=== PATIENT | female | born 1975 | race Caucasian/White ===

== ENCOUNTER 2020-02-23 18:15 | Emergency (ER) | payer OTHER, SELFPAY ==
--- NOTE | ~2020-02-23 | CT_ITS ---
EXAMINATION: CT abdomen pelvis w con DATE: 02/23/2020 20:13 INDICATION: Right-sided abdominal pain TECHNIQUE: Computed tomography (CT) of the abdomen and pelvis was performed with 100 mL Omnipaque-350 intravenous contrast. Automated exposure control and iterative reconstruction technique were employe d. The dose-length product was 849.66 mGy-cm. COMPARISON: None FINDINGS: 6 mm left lower lobe pulmonary nodule. Heart size is normal. No pericardial or pleural effusion. 3.6 cm lobular hepatic cyst with likely indiscernible thin internal septations. Gallbladder, spleen, panc reas, bilateral adrenal glands and kidneys are normal. Normal appendix. No abnormal bowel wall thicke ofelia or obstruction. There is a tortuous collateral vein extending from a branch of the superior mese nteric vein on the anterior right pararenal space to the inferior vena cava which is indeterminate si gnificance. No other vascular abnormality with patent portal vein. Partially decompressed bladder is normal. The uterus is not identified and has likely been surgically resected. A couple bilateral adne xal cysts, each measuring 1.8 cm in maximal diameter. No free intraperitoneal gas or fluid. No pathol ogically enlarged abdominal or pelvic lymphadenopathy. Very small fat-containing umbilical hernia. No pathologically enlarged abdominal or pelvic lymphadenopathy. Mild lumbar levocurvature with mild spo ndylosis. Chronic appearing mild anterior wedging at T12, L1 and L3. IMPRESSION: 1. No acute intra-abdominal/pelvic process. 2. Indeterminate 6 mm left lower lobe pulmonary nodule. Although most likely benign would recommend f ollow-up low-dose noncontrast chest CT at 6-12 months. 3. Tortuous collateral vessel extending from the superior mesenteric vein to the inferior vena cava w hich is of indeterminate significance. Reviewed, dictated and finalized at location . [employer] IMPRESSION: 1. No acute intra-abdominal/pelvic process. 2. Indeterminate 6 mm left lower lobe pulmonary nodule. Although most likely be nign would recommend follow-up low-dose noncontrast chest CT at 6-12 months. 3. Tortuous collateral vessel extending from the superior mesenteric vein to th e inferior vena cava which is of indeterminate significance.
[2020-02-23 18:20] VITALS: BP 135/61; PULSE 91; RESP 20; TEMP 36.4; O2SAT 99
[2020-02-23 18:47] LABS: Basophils Absolute Auto 0.1 K/mm3 (0.0-0.1); Basophils Percent Auto 0.7 % (0.2-1.2); Eosinophils Absolute Auto 0.1 K/mm3 (0-0.3); Eosinophils Percent Auto 1.6 % (0-4.4); Hematocrit 37.2 % (37.0-47.0); Hemoglobin 12.3 g/dL (12.0-15.0); Immature Granulocyte Absolute 0.02 K/mm3 (0.00-0.031); Immature Granulocyte Percent A 0.2 % (0-0.5); Lymphocytes Percent Auto 22.1 % (18.3-44.2); Mean Corpuscular HGB Conc 33.1 g/dl (32-36); Mean Corpuscular Hemoglobin 29.9 pg (26-34); Mean Corpuscular Volume 90.3 fl (80-100); Mean Platelet Volume 11.7 fl (7.4-10.4); Monocytes Absolute Auto 0.7 K/mm3 (0.1-0.6); Monocytes Percent Auto 7.4 % (2.6-8.5); Neutrophils Absolute Auto 6.1 K/mm3 (1.3-6.7); Platelet Count Result 218 k/mm3 (150-375); Red Blood Count 4.12 M/mm3 (4.2-5.4); Red Cell Distribution Width 12.1 % (11.5-14.5)
[2020-02-23 18:50] VITALS: BP 121/82; PULSE 90; RESP 19; O2SAT 99
[2020-02-23] MEDS: MORPHINE SULFATE (*CRX) 4 MG/ML INJ IV PUSH (18:50)
[2020-02-23] MEDS: ONDANSETRON INJ 4 MG/2 ML VIAL IV PUSH (18:50)
[2020-02-23 19:00] LABS: Alanine Aminotransferase 17 U/L (4-35); Albumin Level 4.2 g/dL (3.5-5.1); Alkaline Phosphatase 55 U/L (38-126); Anion Gap 7 mmol/L (8-16); Aspartate Amino Transferase 27 U/L (14-36); Bilirubin,Total 0.3 mg/dL (0.2-1.3); Blood Urea Nitrogen 23 mg/dL (7-17); Calcium 8.8 mg/dL (8.4-10.2); Carbon Dioxide 27 mmol/L (22-30); Chloride 103 mmol/L (98-107); Estimated CRCL calculation 67 ml/min; Estimated Glomerular Filt Rate > 60; Glucose 96 mg/dL (65-105); Lipase 77 U/L (23-300); Potassium 4.1 mmol/L (3.4-5.0); Sodium 137 mmol/L (137-145)
[2020-02-23 19:06] LABS: Add Urine Microscopic? YES; Appearance Urine Clear (Clear); Bilirubin Urine Negative (Negative); Blood Urine Negative (Negative); Color Urine Yellow (Yellow); Glucose Urine UA Negative (Negative); Ketones Urine Negative (Negative); Leukocyte Esterase Ur Negative LEU/UL (Negative); Mucus Urine Rare /lpf; Nitrate Urine Negative (Negative); Protein Urine 1+ mg/dL (Negative); RBC Urine 0-2 /hpf (0-2); Squamous Epithelial Cell Urine Many /hpf (Few); Urobilinogen Urine Negative mg/dL (<2.0); WBC Urine 0-3 /hpf
--- NOTE | 2020-02-23 19:11 | ED.ABDPAIN ---
HPI - Abdominal Pain General Chief Complaint: Abdominal Pain Stated Complaint: gall bladder pain Time Seen by Provider: 02/23/20 18:33 History of Present Illness HPI narrative: Patient is a 44-year-old female who presents ER with upper abdominal pain. Ongoing over the last 48 hours. Persistent and right upper quadrant/epigastrium radiating to her right shoulder. Occasional discomfort right lower quadrant. Worse with eating and drinking. No nausea/vomiting. Reports fever of 100.5 ?F that occurred this afternoon. Patient no formal diagnosis of cholelithiasis but feels her gallbladder may be involved. No alleviating factors. Related Data Home Medications Medication Instructions Recorded Confirmed L norgest/E estradiol-E estrad 1 tablet PO DAILY 10/16/19 0.15 mg-30 mcg (84)/10 mcg(7) tabs,3mos montelukast 10 mg tablet 10 mg PO DAILY 10/16/19 calcium carbonate 200 mg calcium 200 mg PO BID 10/17/19 (500 mg) chewable tablet cholecalciferol (vitamin D3) 1,250 1,250 mcg PO WEEKLY 10/17/19 mcg (50,000 unit) tablet citalopram 20 mg tablet 20 mg PO DAILY 10/17/19 duloxetine 20 mg capsule,delayed 20 mg PO BID 10/17/19 release glucosamine HCl 500 mg tablet 500 mg PO BID 10/17/19 lorazepam 0.5 mg tablet 0.5 mg PO DAILY PRN 10/17/19 Allergies Allergy/AdvReac Type Severity Reaction Status Date / Time tramadol Allergy Intermediate unknown Verified 02/23/20 18:54 hydrocodone AdvReac Unknown VOMITING Verified 02/23/20 18:54 Review of Systems Review of Systems: All systems reviewed & are unremarkable except as noted in HPI and below Constitutional: Constitutional: Denies chills, Reports fever(s) and Denies weakness ENT: Denies nasal congestion and Denies sore throat Cardiovascular: Cardiovascular: Denies chest pain and Denies radiating jaw, neck or arm pain Respiratory: Respiratory: Denies cough and Denies dyspnea Gastrointestinal: Gastrointestinal: Reports abdominal pain, Denies diarrhea, Denies nausea and Denies vomiting Genitourinary: Genitourinary: Denies hematuria, Reports nocturia and Denies dysuria [facility] Past Medical History Medical History (Updated 02/23/20 @ 21:35 by Moustapha Polanco MD) Encounter for tubal ligation Surgical History Surgical History Delivery by section H/O rhinoplasty History of wisdom tooth extraction Family History Family History (Updated 07/20/17 @ 14:02 by DOCTOR UNKNOWN) Father Family history of mental disorder Depression Diabetes mellitus Family history of blood dyscrasia Hypertension Cerebrovascular accident Grandparent Depression Family history of lung cancer Family history of heart disease in male family member before age 55 Diabetes mellitus Mother Family history of diabetes mellitus in first degree relative Diabetes mellitus Hypertension Social History Social History Smoking status: Former smoker Smoking end date: 04/05/96 Alcohol intake: current Substance use type: marijuana Exam Narrative: Exam Narrative: GENERAL: Well-appearing, well-nourished, and in no acute distress. HEAD: Normocephalic, atraumatic. CHEST: Clear to auscultation. No respiratory distress. HEART: Regular rate and rhythm. Normal peripheral pulses. ABDOMEN: Soft, mild tenderness right upper/lower quadrants without guarding, nondistended, normal active bowel sounds. EXTREMITIES: Normal range of motion. No edema. SKIN: Warm, dry, no rash. NEURO: Alert and oriented x3. PSYCH: Normal mood and affect. Course Course Emergency Course: Discussed lab results and imaging results with patient. Specifically discussed lung nodule and need for follow-up CT scan. Discharge home. Will start on Protonix as well as antiemetics. [place] diet as well as low-fat diet recommended. Needs follow-up with PCP for further evaluation. Vital Signs Vi
[2020-02-23 19:13] LABS: Specific Grav Ur 1.033 (1.001-1.035)
[2020-02-23 19:29] VITALS: BP 119/75; PULSE 89; RESP 19; O2SAT 99
[2020-02-23 22:01] VITALS: BP 124/86; PULSE 87; RESP 17; O2SAT 97
== END 2020-02-23 22:03 | disposition home or self-care (01) ==
PROVIDERS: Emergency Provider Emergency Medicine
DX: R10.11 Right upper quadrant pain (principal); R91.1 Solitary pulmonary nodule; Z87.891 Personal history of nicotine dependence
CPT/HCPCS: 36415; 74177; 80053; 81001; 83690; 85025; 96374; 96375; 99284; J2270; J2405; Q9967

== ENCOUNTER 2020-03-11 07:51 | Outpatient (CLI) | payer OTHER, SELFPAY ==
--- NOTE | ~2020-03-11 | US_ITS ---
EXAMINATION: US right upper quadrant DATE: 03/11/2020 08:19 INDICATION: Epigastric abdominal pain. TECHNIQUE: Multiple grayscale and Doppler ultrasound images of the abdomen were obtained. COMPARISON: CT abdomen and pelvis 02/23/2020 FINDINGS: Abdominal aorta is normal in caliber. The visualized portions of the head and body of the p ancreas are normal. There is a 3.9 cm cyst in the liver. No liver surface nodularity. There is normal flow in main portal vein. The gallbladder is normal in size. No gallstones or gallbladder wall thick ening. There is no sonographic Kern sign. The common duct is normal and measures 4 mm. Right kidney is normal. IMPRESSION: 1. No etiology for the patient's symptoms. Reviewed, dictated and finalized at location B. [employer]ER
== END 2020-03-11 07:52 ==
PROVIDERS: PCP Internal Medicine; Visit Provider Internal Medicine
DX: R10.9 Unspecified abdominal pain (principal); K76.89 Other specified diseases of liver
CPT/HCPCS: 76705

== ENCOUNTER 2020-03-15 02:22 | Outpatient (CLI) | payer OTHER, SELFPAY ==
[2020-03-15 18:46] LABS: SARS-CoV-2 RNA PCR Negative
== END 2020-03-15 02:23 | disposition home or self-care (01) ==
LOC: ANHCOVIDDT 02:22
PROVIDERS: PCP Internal Medicine; Visit Provider Internal Medicine Gastroenterology
DX: Z01.812 Encounter for preprocedural laboratory examination (principal); Z20.828 Contact with and (suspected) exposure to other viral communicable diseases
CPT/HCPCS: 87635; C9803; U0003

== ENCOUNTER 2020-03-18 01:40 | Day surgery (SDC) | payer OTHER, SELFPAY ==
[2020-03-08 15:02] VITALS: BMI 30.4
[2020-03-18 09:39] VITALS: BP 149/78; PULSE 80; RESP 16; TEMP 37; O2SAT 97
[2020-03-18] MEDS: LACTATED RINGERS 1,000 ML 150 ML IV CONT (09:41)
--- NOTE | 2020-03-18 09:59 | WPDGICN ---
Assessment and Plan Assessment and plan (1) Abdominal pain: Code(s): R10.9 - Unspecified abdominal pain Status: Acute Assessment and Plan: Patient reports poorly localized abdominal pain. After recent visit to the ER with upper abdominal pain an EGD has been requested will be performed. Further recommendations will be given after endoscopy. Last endoscopy 3 years ago was unremarkable. (2) Constipation: Code(s): K59.00 - Constipation, unspecified Status: Acute Assessment and Plan: Patient has had a change in bowel habits with increasing constipation. Currently on a low dose of Linzess. Plan to increase dose of Linzess to 290 micro g p.o. daily. High-fiber diet is advised. If this fails to relieve her symptoms a colonoscopy would be indicated. GI Consult Note Consult date/time: 03/18/20 09:59 HPI: Gisele Escobar is a 44 year old female Seen in evaluation at the request of Dr. Walters. patient presents for outpatient EGD. Patient has had significant abdominal pain over last several weeks. He went to the emergency room thinking she had gallbladder discomfort in EGD is requested. Patient has various complaints include constipation and dizziness. Over the 2 last 2 weeks has been on a low-dose of Linzess with only modest response to therapy. She has a history of an EGD in 2017 was unremarkable. It was felt that she likely had irritable bowel syndrome. Patient states concern over possible colon disease as well as gallbladder and upper abdominal disease. Her family history is noncontributory. Review of Systems Review of Systems: All systems reviewed & are unremarkable except as noted in HPI and below PMFSH Past Medical History Medical History (Updated 03/18/20 @ 10:[address] MD) Encounter for tubal ligation Surgical History Surgical History Delivery by section H/O rhinoplasty History of wisdom tooth extraction Family History Family History (Updated 07/20/17 @ 14:02 by DOCTOR UNKNOWN) Father Family history of mental disorder Depression Diabetes mellitus Family history of blood dyscrasia Hypertension Cerebrovascular accident Grandparent Depression Family history of lung cancer Family history of heart disease in male family member before age 55 Diabetes mellitus Mother Family history of diabetes mellitus in first degree relative Diabetes mellitus Hypertension Social History Social History Smoking status: Former smoker Smoking end date: 04/05/96 Alcohol intake: current Drinks per week: 2 Substance use: never Substance use type: does not use Spiritual care concerns: No Meds Home Medications and Allergies Home Medications Medication Instructions Recorded Confirmed Type calcium carbonate 200 mg calcium 200 mg PO BID PRN 10/17/19 03/08/20 History (500 mg) chewable tablet citalopram 20 mg tablet 20 mg PO DAILY 10/17/19 03/08/20 History duloxetine 20 mg capsule,delayed 20 mg PO BID 10/17/19 03/08/20 History release ondansetron 4 mg PO Q6H PRN #10 tablet 02/23/20 03/08/20 Rx pantoprazole 40 mg PO BID #28 tablet 02/23/20 03/08/20 Rx fenofibrate nanocrystallized 48 mg PO DAILY 03/08/20 03/08/20 History linaclotide [Linzess] 72 mcg PO DAILY 03/08/20 03/08/20 History inafouyxkges-tbog-qxtqr acid 1 tablet PO DAILY 03/08/20 03/08/20 History [Centrum Women] trazodone 100 mg PO HS PRN 03/08/20 03/08/20 History Allergies Allergy/AdvReac Type Severity Reaction Status Date / Time No Known Allergies Allergy Verified 03/18/20 09:38 Vital Signs Vital Signs - 24 hr 03/18/20 09:39 Temperature 98.6 F Pulse Rate 80 Respiratory Rate 16 Blood Pressure 149/78 H Pulse Oximetry 97 Exam Narrative: Exam Narrative: Physical exam reveals patient to be alert. Vital signs stable. LUKE
--- NOTE | 2020-03-18 10:28 | WPDANESEPPF ---
Anes - Initial Pre Proc Eval Procedure: Operation Date: 03/18/20 11:00 Proposed Procedures p Esophagogastroduodenoscopy - Gokul Street MD Date/Time: 03/18/20 10:28 Surgeon: Gokul Street MD Pre Op Diagnosis: Abdominal Pain Patient Data Age: 44 Gender: F Height: 5 ft 8 in Weight: 93.1 kg Last Vital Signs Temp 37.0 C 03/18/20 09:39 Pulse 80 03/18/20 09:39 Resp 16 03/18/20 09:39 BP 149/78 H 03/18/20 09:39 Pulse Ox 97 03/18/20 09:39 Allergies Allergy/AdvReac Type Severity Reaction Status Date / Time No Known Allergies Allergy Verified 03/18/20 09:38 Home Medications Medication Instructions Recorded Confirmed Type calcium carbonate 200 mg calcium 200 mg PO BID PRN 10/17/19 03/08/20 History (500 mg) chewable tablet citalopram 20 mg tablet 20 mg PO DAILY 10/17/19 03/08/20 History duloxetine 20 mg capsule,delayed 20 mg PO BID 10/17/19 03/08/20 History release ondansetron 4 mg PO Q6H PRN #10 tablet 02/23/20 03/08/20 Rx pantoprazole 40 mg PO BID #28 tablet 02/23/20 03/08/20 Rx fenofibrate nanocrystallized 48 mg PO DAILY 03/08/20 03/08/20 History linaclotide [Linzess] 72 mcg PO DAILY 03/08/20 03/08/20 History evdndrpsbpnl-wwft-ijinv acid 1 tablet PO DAILY 03/08/20 03/08/20 History [Centrum Women] trazodone 100 mg PO HS PRN 03/08/20 03/08/20 History Patient hx anesthesia problems: none Family hx anesthesia problems: none PMFSH Past Medical History Medical History (Updated 03/18/20 @ 10:28 by Anselmo Franklin MD) Encounter for tubal ligation Obesity Surgical History Surgical History Delivery by section H/O rhinoplasty History of wisdom tooth extraction Family History Family History Father Family history of mental disorder Depression Diabetes mellitus Family history of blood dyscrasia Hypertension Cerebrovascular accident Grandparent Depression Family history of lung cancer Family history of heart disease in male family member before age 55 Diabetes mellitus Mother Family history of diabetes mellitus in first degree relative Diabetes mellitus Hypertension Social History Social History Smoking status: Former smoker Smoking end date: 04/05/96 Alcohol intake: current Drinks per week: 2 Substance use: never Substance use type: does not use Spiritual care concerns: No Anes - Eval Final PreProcedure Day of Procedure 03/18/20 10:28 Patient weight: obese Heart: regular rate and rhythm Lungs: clear to auscultation Airway: Mallampati scale class II Neurological: alert and oriented Last oral intake: >/= 8 hours ASA classification: III Emergent: no Anesthetic plan: proceed Anesthesia type and monitoring: general GIVS and standard monitoring Informed Consent: The patient's anesthetic plan and its attendant risks and benefits were discussed with the patient/family/POA. Questions were solicited and answers provided to the satisfaction of the patient/family/POA.
[2020-03-18] MEDS: BENZOCAINE (*SP) 60 ML SPRAY CAN (HURRICAINE) 1 SPRAY MUCOUS MEM (11:26)
[2020-03-18 11:36] VITALS: BP 109/65; PULSE 76; RESP 16; O2SAT 98
[2020-03-18 11:46] VITALS: BP 110/68; PULSE 65; RESP 12; O2SAT 99
[2020-03-18 11:56] VITALS: BP 126/78; PULSE 71; RESP 12; O2SAT 99
== END 2020-03-18 12:16 | disposition home or self-care (01) ==
PROVIDERS: PCP Internal Medicine; Visit Provider Internal Medicine Gastroenterology
PROC: 0DJ08ZZ Inspection of Upper Intestinal Tract, Via Natural or Artificial Opening Endoscopic (ICD-10-PCS; CPT 43235; principal; 2020-03-18 11:00)
DX: R10.9 Unspecified abdominal pain (principal); K59.00 Constipation, unspecified; Z87.891 Personal history of nicotine dependence; E66.9 Obesity, unspecified; Z68.31 Body mass index [BMI] 31.0-31.9, adult
CPT/HCPCS: 43239; 87081; J7120

== ENCOUNTER 2020-05-07 01:17 | Outpatient (CLI) | payer OTHER, SELFPAY ==
[2020-05-07 19:18] LABS: SARS-CoV-2 RNA PCR Negative
== END 2020-05-07 01:18 | disposition home or self-care (01) ==
LOC: ANHCOVIDDT 01:18
PROVIDERS: PCP Internal Medicine; Visit Provider Internal Medicine Gastroenterology
DX: Z01.812 Encounter for preprocedural laboratory examination (principal); Z20.822 Contact with and (suspected) exposure to COVID-19
CPT/HCPCS: C9803; U0003; U0005

== ENCOUNTER 2020-05-10 01:03 | Day surgery (SDC) | payer OTHER, SELFPAY ==
[2020-04-26 12:28] VITALS: BMI 30.4
[2020-05-10 07:20] VITALS: BP 109/69; PULSE 87; RESP 16; TEMP 36.8; O2SAT 98
[2020-05-10] MEDS: LACTATED RINGERS 1,000 ML 150 ML IV CONT (07:32)
--- NOTE | 2020-05-10 07:44 | WPDGICN ---
Assessment and Plan Assessment and plan (1) Constipation: Code(s): K59.00 - Constipation, unspecified Status: Acute Assessment and Plan: Because of recent change in bowel habits with increasing constipation and abdominal pain a colonoscopy will be planned today. Continued routinely use of laxative such as Linzess is advised. High fiber supplements and diet is advised as well. Holding other medications that may contribute to constipation such as Cymbalta is encourage. Further recommendations will be given after endoscopy. (2) Abdominal pain: Code(s): R10.9 - Unspecified abdominal pain Status: Acute GI Consult Note Consult date/time: 05/10/20 07:44 HPI: Gisele Escobar is a 44 year old female Presents for colonoscopy. Patient recently complained of abdominal pain. EGD in mid March was unremarkable. Since the last several months patient has had increasing constipation. For this reason she presents today for colonoscopy. She states that low dose of Linzess was increased to 290 micro g p.o. daily with improve symptoms. She has had better bowel movements. However she only takes this medication intermittently. Additionally she has been on Cymbalta which may contribute to constipation. This been held for several days but no certain response has been identified yet. Patient denies any bleeding. She denies any weight loss. Because of change in bowel habits and ongoing abdominal pain a colonoscopy is to be performed. Family history is noncontributory for colon cancer. Review of Systems Review of Systems: All systems reviewed & are unremarkable except as noted in HPI and below PMFSH Past Medical History Medical History (Updated 03/18/20 @ 10:28 by Anselmo Franklin MD) Encounter for tubal ligation Obesity Surgical History Surgical History Delivery by section H/O rhinoplasty History of wisdom tooth extraction Family History Family History Father Family history of mental disorder Depression Diabetes mellitus Family history of blood dyscrasia Hypertension Cerebrovascular accident Grandparent Depression Family history of lung cancer Family history of heart disease in male family member before age 55 Diabetes mellitus Mother Family history of diabetes mellitus in first degree relative Diabetes mellitus Hypertension Social History Social History Smoking status: Never smoker Smoking end date: 04/05/96 Alcohol intake: current Drinks per week: 1 Alcohol use details: once a week Substance use: never Substance use type: does not use Living arrangements: with family Gender identity (if verbalized by the patient): Female Spiritual care concerns: No Meds Home Medications and Allergies Home Medications Medication Instructions Recorded Confirmed Type calcium carbonate 200 mg calcium 200 mg PO BID PRN 10/17/19 03/08/20 History (500 mg) chewable tablet citalopram 20 mg tablet 40 mg PO DAILY 10/17/19 04/26/20 History ondansetron 4 mg PO Q6H PRN #10 tablet 02/23/20 04/26/20 Rx pantoprazole 40 mg PO BID #28 tablet 02/23/20 04/26/20 Rx fenofibrate nanocrystallized 48 mg PO DAILY 03/08/20 04/26/20 History linaclotide [Linzess] 290 mcg PO DAILY 03/08/20 04/26/20 History cgpdhxyqeooe-bqoq-uwimu acid 1 tablet PO DAILY 03/08/20 04/26/20 History [Centrum Women] trazodone 100 mg PO HS PRN 03/08/20 04/26/20 History sodium,potassium,mag sulfates 17.5 See Rx Instructions PO .COMPLEX 04/23/20 Rx gram-3.13 gram-1.6 gram oral soln #354 ml lorazepam 0.5 mg PO DAILY PRN 04/26/20 04/26/20 History Allergies Allergy/AdvReac Type Severity Reaction Status Date / Time No Known Allergies Allergy Verified 05/10/20 07:14 Vital Signs Vital Signs - 24 hr 05/10/20 07:20 Temperatu
--- NOTE | 2020-05-10 07:55 | WPDANESEPPF ---
Anes - Initial Pre Proc Eval Procedure: Operation Date: 05/10/20 08:30 Proposed Procedures p Colonoscopy - Gokul Street MD Date/Time: 05/10/20 07:55 Surgeon: Gokul Street MD Pre Op Diagnosis: Change in Bowel Habits Patient Data Age: 44 Gender: F Height: 5 ft 7 in Weight: 87 kg Last Vital Signs Temp 98.2 F 05/10/20 07:20 Pulse 87 05/10/20 07:20 Resp 16 05/10/20 07:20 BP 109/69 05/10/20 07:20 Pulse Ox 98 05/10/20 07:20 Allergies Allergy/AdvReac Type Severity Reaction Status Date / Time No Known Allergies Allergy Verified 05/10/20 07:14 Home Medications Medication Instructions Recorded Confirmed Type calcium carbonate 200 mg calcium 200 mg PO BID PRN 10/17/19 03/08/20 History (500 mg) chewable tablet citalopram 20 mg tablet 40 mg PO DAILY 10/17/19 04/26/20 History ondansetron 4 mg PO Q6H PRN #10 tablet 02/23/20 04/26/20 Rx pantoprazole 40 mg PO BID #28 tablet 02/23/20 04/26/20 Rx fenofibrate nanocrystallized 48 mg PO DAILY 03/08/20 04/26/20 History linaclotide [Linzess] 290 mcg PO DAILY 03/08/20 04/26/20 History bakmpzlppagw-tloj-ntmme acid 1 tablet PO DAILY 03/08/20 04/26/20 History [Centrum Women] trazodone 100 mg PO HS PRN 03/08/20 04/26/20 History sodium,potassium,mag sulfates 17.5 See Rx Instructions PO .COMPLEX 04/23/20 Rx gram-3.13 gram-1.6 gram oral soln #354 ml lorazepam 0.5 mg PO DAILY PRN 04/26/20 04/26/20 History Patient hx anesthesia problems: none Family hx anesthesia problems: none PMFSH Past Medical History Medical History (Updated 03/18/20 @ 10:28 by Anselmo Franklin MD) Encounter for tubal ligation Obesity Surgical History Surgical History Delivery by section H/O rhinoplasty History of wisdom tooth extraction Family History Family History Father Family history of mental disorder Depression Diabetes mellitus Family history of blood dyscrasia Hypertension Cerebrovascular accident Grandparent Depression Family history of lung cancer Family history of heart disease in male family member before age 55 Diabetes mellitus Mother Family history of diabetes mellitus in first degree relative Diabetes mellitus Hypertension Social History Social History Smoking status: Never smoker Smoking end date: 04/05/96 Alcohol intake: current Drinks per week: 1 Alcohol use details: once a week Substance use: never Substance use type: does not use Living arrangements: with family Gender identity (if verbalized by the patient): Female Spiritual care concerns: No Anes - Eval Final PreProcedure Day of Procedure 05/10/20 07:55 Patient weight: obese Heart: regular rate and rhythm Lungs: clear to auscultation Airway: Mallampati scale class II Neurological: alert and oriented Last oral intake: >/= 8 hours ASA classification: III Emergent: no Anesthetic plan: proceed Anesthesia type and monitoring: general GIVS and standard monitoring Informed Consent: The patient's anesthetic plan and its attendant risks and benefits were discussed with the patient/family/POA. Questions were solicited and answers provided to the satisfaction of the patient/family/POA.
[2020-05-10 08:31] VITALS: BP 89/53; PULSE 81; RESP 25; O2SAT 100
[2020-05-10 08:41] VITALS: BP 92/55; PULSE 72; RESP 15; O2SAT 100
[2020-05-10 08:51] VITALS: BP 104/59; PULSE 84; RESP 17; O2SAT 100
== END 2020-05-10 09:06 | disposition home or self-care (01) ==
PROVIDERS: PCP Internal Medicine; Visit Provider Internal Medicine Gastroenterology
PROC: 0DJD8ZZ Inspection of Lower Intestinal Tract, Via Natural or Artificial Opening Endoscopic (ICD-10-PCS; CPT 45378; principal; 2020-05-10 08:30)
DX: K59.00 Constipation, unspecified (principal); K63.5 Polyp of colon; R19.4 Change in bowel habit; K64.8 Other hemorrhoids
CPT/HCPCS: 45385; 88305; C9803; J2704; J7120; U0003; U0005

== ENCOUNTER → 2021-12-09 15:58 | Outpatient (CLI) | payer OTHER, SELFPAY ==
--- NOTE | ~2021-12-09 | MM_ITS ---
EXAMINATION: MM screening jer BI w orly HISTORY: Screening mammogram TECHNIQUE: Craniocaudal and mediolateral oblique 3-D tomosynthesis images were obtained and synthetic 2-D images were generated. CAD analysis was submitted and interpreted. COMPARISON: No prior mammogram is available for comparison at this institution. BREAST PARENCHYMAL COMPOSITION: There are scattered areas of fibroglandular density. FINDINGS: There is no evidence of suspicious mass, calcification, or architectural distortion to sugg est malignancy in either breast. There has been no suspicious interval change. IMPRESSION: 1. No mammographic evidence of malignancy. 2. Recommend routine screening mammography in one year. BI-RADS Category 1: Negative Reviewed, dictated and finalized at location A.
== END ==
PROVIDERS: PCP Internal Medicine; Visit Provider Student in an Organized Health Care Education/Training Program
DX: Z12.31 Encounter for screening mammogram for malignant neoplasm of breast (principal)
CPT/HCPCS: 77063; 77067

== ENCOUNTER 2023-07-14 10:31 | Outpatient (CLI) | payer OTHER, SELFPAY ==
--- NOTE | ~2023-07-14 | MM_ITS ---
EXAMINATION: MM diagnostic jer BI w orly HISTORY: Left breast radiation several weeks ago, treated with steroids. TECHNIQUE: Bilateral full field ML, MLO, rotated lateral CC and CC 3-D tomosynthesis images and spot left MLO and rotated lateral CC Tomosynthesis images were performed and synthetic 2-D images were gen erated. CAD analysis was submitted and interpreted. COMPARISON: 12/09/2021 bilateral screening mammogram BREAST PARENCHYMAL COMPOSITION: There are scattered areas of fibroglandular density. FINDINGS: No suspicious mass or architectural distortion, malignant calcification, skin thickening or retraction or significant new or developing density is detected. IMPRESSION: 1. No mammographic evidence of malignancy; no significant change since 12/09/2021 2. Routine annual mammographic screening is recommended BI-RADS Category 1: Negative Reviewed, dictated and finalized at location A.
== END 2023-07-14 10:32 | disposition home or self-care (01) ==
PROVIDERS: PCP Internal Medicine; Visit Provider Nurse Practitioner Family
DX: R23.4 Changes in skin texture (principal)
CPT/HCPCS: 77062; 77066; G0279